=== PATIENT | male | born 1970 | race African-American/Black ===

== ENCOUNTER 2025-08-12 10:14 | Inpatient (IN) | payer MEDICAID, OTHER ==
[~2025-08-12] VITALS: Ht 175.3 cm; Wt 74.7 kg
[2025-08-12] MEDS: SODIUM CHLORIDE 0.9% 1,000 ML IV ONE (10:30)
--- NOTE | 2025-08-12 10:40 | ED.PDOC ---
GI ASSESSMENT HPI Comments 55 y/o M, TRUDY, presents to the ED for CC of abdominal pain. Patient reports, that he has been experiencing RLQ abdominal pain with associated nausea, vomiting, and diarrhea x1day. Patient states, he has been unable to hold anything down d/t symptoms. Patient denies hematemesis, melena, fever, chills, or recent changes in diet. No other symptoms or modifying factors are present at this time. Chief Complaint: Abdominal Pain Time Seen by MD: 10:10 Reviewed Notes: Nurses Notes, Medications, Allergies Allergies: Coded Allergies: Penicillins (Verified Allergy, Unknown, 08/12/25) Information Source: Patient, Emergency Med Personnel Mode of Arrival: EMS Timing: Days Duration: Since onset Prehospital treatment: None Vomitus: Watery Stool: Watery Severity: Moderate Recent: None Recent Hx of: None Pain Location: RLQ Modifying Factors: Nothing Associated sign and symptoms: Nausea, Vomiting, Diarrhea, Abdominal Pain Past Medical History PAST MEDICAL HISTORY: Denies Surgical History: Denies all surgeries Family History Family History: Unknown Social History Smoker: Non-Smoker Alcohol: Denies ETOH Use Drugs: Denies Drug Use Lives In: Home Constitutional: denies: chills, diaphoresis, fatigue, fever, malaise, sweats, weakness, others EENTM: denies: blurred vision, double vision, ear bleeding, ear discharge, ear drainage, ear pain, ear ringing, eye pain, eye redness, hearing loss, mouth pain, mouth swelling, nasal discharge, nose bleeding, nose congestion, nose pain, photophobia, tearing, throat pain, throat swelling, voice changes, others Respiratory: denies: cough, hemoptysis, orthopnea, SOB at rest, shortness of breath, SOB with excertion, stridor, wheezing, others Cardiovascular: denies: chest pain, dizzy spells, diaphoresis, Dyspnea on exertion, edema, irregular heart beat, left arm pain, lightheadedness, palpitations, PND, syncope, others Gastrointestinal: reports: abdominal pain, diarrhea, nausea, vomiting; denies: abdomen distended, blood streaked bowels, constipated, dysphagia, difficulty swallowing, hematemesis, melena, poor appetite, poor fluid intake, rectal bleeding, rectal pain, others Genitourinary: denies: burning, dysuria, flank pain, frequency, hematuria, incontinence, penile discharge, penile sore, pain, testicle pain, testicle swelling, urgency, others Neurological: denies: dizziness, fainting, headache, left sided numbness, left sided weakness, numbness, paresthesia, pre-existing deficit, right sided numbness, right sided weakness, seizure, speech problems, tingling, tremors, weakness, others Musculoskeletal: denies: back pain, gout, joint pain, joint swelling, muscle pain, muscle stiffness, neck pain, others Integumetry: denies: bruises, change in color, change in hair/nails, dryness, laceration, lesions, lumps, rash, wounds, others Allergic/Immunocompromised: denies: Difficulty Healing, Frequent Infections, Hives, Itching, others Hematologic/Lymphatic: denies: anemia, blood clots, easy bleeding, easy bruising, swollen glands, others Endocrine: denies: excessive hunger, excessive sweating, excessive thirst, excessive urination, flushing, intolerance to cold, intolerance to heat, unexplained weight gain, unexplained weight loss, others Psychiatric: denies: anxiety, bipolar disorder, depression, hopeless, panic disorder, schizophrenia, sleepless, suicidal, others All Other Systems: Reviewed and Negative Physical Exam General Appearance: Moderate Distress HEENT: Pharyngeal Erythema Neck: Normal Inspection Respiratory: No Respiratory Distress Cardiovascular: No Edema Breast Exam: Deferred Gastrointestinal: Non Tender Genitalia: Deferred Pelvic: Deferred Rectal: Deferred Extremities: No pedal edema Neurologic: No Motor Deficits Cerebellar Function: NOT DONE Reflexes: NOT DONE Skin: Normal Color Lymphatic: NOT DONE Was a procedure done? Was a procedure done?: No GI differential Dx Differential Diagnosis: Constipation, Diverticular disease, Gastritis/PUD, Gastroenteritis, Inflammatory BD, Electrolyte Imbalance, Food Poisoning, Bacterial, Viral X-Ray, Labs, Meds, VS Vital Signs Date Time Temp Pulse Resp B/P (MAP) Pulse Ox O2 Delivery O2 Flow Rate FiO2 08/12/25 13:04 97.4 69 16 106/65 (79) 96 97.4 08/12/25 12:25 69 16 106/65 08/12/25 11:48 68 18 136/81 08/12/25 11:30 97.8 68 18 136/81 (99) 99 97.8 08/12/25 10:22 98.2 72 16 113/72 99 98.2 Lab Test 08/12/25 10:35 Range/Units White Blood Count 14.4 H 4.4-10.8 10^3/uL Red Blood Count 5.80 4.5-5.90 10^6/uL Hemoglobin 16.7 13.5-17.5 g/dL Hematocrit 47.9 41.0-53.0 % Mean Corpuscular Volume 82.7 80.0-100.0 fL Mean Corpuscular Hemoglobin 28.7 28.0-32.0 pg Mean Corpuscular Hemoglobin Concent 34.8 32.0-36.0 g/dL Red Cell Distribution Width 14.6 H 11.8-14.3 % Platelet Count 212 140-450 10^3/uL Mean Platelet Volume 9.0 6.9-10.8 fL Neutrophils (%) (Auto) 82.1 H 37.0-80.0 % Lymphocytes (%) (Auto) 11.5 10.0-50.0 % Monocytes (%) (Auto) 5.7 0.0-12.0 % Eosinophils (%) (Auto) 0.3 0.0-7.0 % Basophils (%) (Auto) 0.4 0.0-2.0 % Neutrophils # (Auto) 11.8 H 1.6-8.6 10 ^3/uL Lymphocytes # (Auto) 1.7 0.4-5.4 10 ^3/uL Monocytes # (Auto) 0.8 0-1.3 10 ^3/uL Eosinophils # (Auto) 0.1 0-0.8 10 ^3/uL Basophils # (Auto) 0.1 0-0.2 10 ^3/uL Nucleated Red Blood Cells 0.2 % Platelet Estimate Adequate Giant Platelets Moderate Sodium Level 145 136-145 mmol/L Potassium Level 4.0 3.5-5.1 mmol/L Chloride Level 106 98-107 mmol/L Carbon Dioxide Level 22 20-31 mmol/L Anion Gap 17 H 5-15 Blood Urea Nitrogen 12 9-23 mg/dL Creatinine 1.16 0.700-1.30 mg/dL Glomerular Filtration Rate Calc 73 >90 mL/min BUN/Creatinine Ratio 10.3 10.0-20.0 Serum Glucose 98 74-106 mg/dL Calcium Level 10.1 8.7-10.4 mg/dL Total Bilirubin 1.1 H 0.2-1.0 mg/dL Aspartate Amino Transferase (AST) 16 13-40 U/L Alanine Aminotransferase (ALT) 14 7-40 U/L Alkaline Phosphatase 79 46-116 U/L Troponin I High Sensitivity 4 </=54 ng/L Total Protein 7.6 5.7-8.2 g/dL Albumin 4.7 3.2-4.8 g/dL Lipase 34 12-53 U/L Current Medications Medications (Trade) Dose Ordered Sig/Daphne Route Start Time Stop Time Status Last Admin Sodium Chloride 1,000 ml @ 1,000 mls/hr Q1H ONCE IV 08/12/25 10:30 08/12/25 11:29 DC 08/12/25 10:30 Morphine Sulfate 4 mg ONCE ONCE IV 08/12/25 10:30 08/12/25 10:31 DC 08/12/25 11:48 Ondansetron HCl (Zofran) 4 mg ONCE ONCE IV 08/12/25 10:30 08/12/25 10:31 DC 08/12/25 11:48 Pantoprazole Sodium (Protonix) 40 mg ONCE ONCE IV 08/12/25 10:30 08/12/25 10:31 DC 08/12/25 11:49 [place] [id number] Ph: [phone] DIAGNOSTIC IMAGING Diagnostic Imaging Report : [id number] Signed PATIENT: MEL LINGCCT: [id number] UNIT: [id number] : 1970 LOC: ER ROOM / BED: / AGE / SEX: 55 / M ADM STATUS: REG ER SERVICE 1029 ORDERING PHYSICIAN: AWILDA ZHOU MD PROCEDURE(s): ABPLIV - CT AB PEL WITH IV CON ONLY REASON: abdominal pain ORDER NUMBER(s): [id number], ACCESSION NUMBER(s): [id number] CLINICAL INFORMATION: Abdominal pain. TECHNIQUE: Axial CT images of the abdomen and pelvis were obtained after the uneventful administration of 100 mL Omnipaque 300 IV contrast. Coronal and sagittal reformatted images were obtained, reviewed, and stored. All CT scans at this medical facility are performed using dose modulation techniques as appropriate to a performed exam including the following: Automated exposure control was utilized; adjustment of the MA and/or KV according to patient size; and use of iterative reconstruction technique. CTDIvol = 8.48 mGy DLP = 501.59 mGy-cm COMPARISON: None FINDINGS: Lung bases: Lung bases are clear. Liver: Unremarkable. No abnormal density or focal lesion. Biliary: No calcified gallstones or biliary ductal dilatation. Spleen: Unremarkable. Pancreas: Unremarkable. No inflammatory changes, ductal dilatation, or mass identified. Adrenal glands: Unremarkable. No mass. Kidneys: No hydronephrosis or mass. Aorta/Vascular: No aneurysm or significant calcification. Lymph Nodes: No mass or lymphadenopathy. Bowel/mesentery: No small bowel obstruction. No free air or free fluid. Appendix is visualized and appears unremarkable. Pelvic organs: Grossly unremarkable. Bladder: Unremarkable. No mass. Abdominal wall: No mass or hernia. Bones: Postsurgical changes of posterior spinal fusion and interbody fusion extending from L2-S1. Surgical hardware appears intact. There are focal sclerotic lesions in the T12 and L1 vertebral bodies, including involving most of the T12 vertebral body. Sclerotic metastatic disease not excluded. IMPRESSION: 1. Sclerotic lesions in the T12 L1 vertebral bodies. Sclerotic metastases not excluded. Correlate with clinical findings. If clinically indicated, nuclear medicine bone scan or MRI without and with contrast could be considered to further characterize. 2. Otherwise, no evidence of acute disease in the abdomen or pelvis. ATED BY: TUNG DE LA O DO DICTATED DATE/TIME: 08/12/25 1234 SIGNED BY: TUNG DE LA O DO SIGNED DATE/TIME: 08/12/25 1234 CC: Time of 1ST Reevaluation: 10:40 Reevaluation 1ST: Unchanged Patient Education/Counseling: Diagnosis, Treatment Family Education/Counseling: No Family Present SEPSIS Sepsis Screen Date sepsis recognized/suspect: Aug 12, 2025 Time Sepsis recognized/suspect: 1022 Recent Procedure: No On Antibiotic Therapy: No Respiratory Rate >20: No Heart Rate >90: No Temp<36 C (96.8 F) or >38.3 C: No SBP <90 or MAP <65 mmHG: No New Acute Mental Status Change: No Is the patient on CPAP, BIPAP,: No Physician Orders Urinalysis (08/12/25 10:29) Ct Ab Pel With Iv Con Only (08/12/25 10:29) Vital Signs Date Time Temp Pulse Resp B/P (MAP) Pulse Ox O2 Delivery O2 Flow Rate FiO2 08/12/25 13:04 97.4 69 16 106/65 (79) 96 97.4 08/12/25 12:25 69 16 106/65 08/12/25 11:48 68 18 136/81 08/12/25 11:30 97.8 68 18 136/81 (99) 99 97.8 08/12/25 10:22 98.2 72 16 113/72 99 98.2 Laboratory Tests Test 08/12/25 10:35 White Blood Count 14.4 10^3/uL (4.4-10.8) H Medications Medications Dose Ordered Sig/Daphne Route Start Time Stop Time Status Last Admin Dose Admin Morphine Sulfate 4 mg ONCE ONCE IV 08/12/25 10:30 08/12/25 10:31 DC 08/12/25 11:48 Ondansetron HCl 4 mg ONCE ONCE IV 08/12/25 10:30 08/12/25 10:31 DC 08/12/25 11:48 Pantoprazole Sodium 40 mg ONCE ONCE IV 08/12/25 10:30 08/12/25 10:31 DC 08/12/25 11:49 Sodium Chloride 1,000 ml @ 1,000 mls/hr Q1H ONCE IV 08/12/25 10:30 08/12/25 11:29 DC 08/12/25 10:30 Departure 1 Departure Time of Disposition: 13:11 (Patient presented with abdominal pain that was concerning for possible appendicits, gastritis, cholecystitis, colitis, gastroenteritis, sbo, or orther possible surgical emergency. Data: 1. I ordered and reviewed the result of at least 3 labs including a CBC, BMP, and Urinalysis. 2. I independently interpreted the following tests: CT Abdomen and Pelvis is concerning for carotic metastasis lesion to thoracic spine .Risk:This patient has a high risk of morbidity due to further diagnostic testing or treatment and may suffer from an acute abdominal process disorder. Workup reveals intractable back pain with concern for cancer metastasis and patient should be admitted for further workup. and possible expert consultation. 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 Patient with a intractable pain. We will admit patient for pain control and expedited workup) Impression: Primary Impression: Intractable back pain Additional Impression: Closed T12 fracture Disposition: 09 ADMITTED INPATIENT Admit to: Tele Condition: Guarded Critical Care Note Critical Care Time?: Yes Critical care comment: Intractable pain Authorized and Performed by: Awilda Zhou MD Total critical care time: Approximately 38 minutes Due to a high probability of clinically significant, life threatening deterioration, the patient required my highest level of preparedness to intervene emergently and I personally spent this critical care time directly and personally managing the patient. This critical care time included obtaining a history; examining the patient; pulse oximetry; ordering and review of studies; arranging urgent treatment with development of a management plan; evaluation of patient's response to treatment; frequent reassessment; and, discussions with other providers. This critical care time was performed to assess and manage the high probability of imminent, life-threatening deterioration that could result in multi-organ failure. It was exclusive of separately billable procedures and treating other patients and teaching time. Please see my other sections and the rest of the note for further information on patient assessment and treatment. Stability Stability form required: No Heart Score Heart Score: Heart Score Response (Comments) Value History N/A 0 EKG N/A 0 Age N/A 0 Risk Factors N/A 0 Troponin N/A 0 Total 0 I personally scribed for AWILDA ZHOU MD ([email or web address]) on 08/12/25 at 10:40. Electronically submitted by Judi Leon ([email or web address]). I personally scribed for AWILDA ZHOU MD ([email or web address]) on 08/12/25 at 12:53. Electronically submitted by Judi Leon ([email or web address]). AWILDA ZHOU MD Aug 12, 2025 10:40
[2025-08-12 11:06] LABS: Hematocrit 47.9 % (41.0-53.0); Hemoglobin 16.7 g/dL (13.5-17.5); Mean Corpuscular Hemoglobin 28.7 pg (28.0-32.0); Mean Corpuscular Volume 82.7 fL (80.0-100.0); Nucleated Red Blood Cells % 0.2 %
[2025-08-12 11:25] LABS: Alanine Aminotransferase 14 U/L (7-40); Alkaline Phosphatase 79 U/L (46-116); Calcium 10.1 mg/dL (8.7-10.4)
[2025-08-12 11:26] LABS: Albumin 4.7 g/dL (3.2-4.8); Anion Gap 17 (5-15); BUN/Creatinine Ratio 10.3 (10.0-20.0); Bilirubin, Total 1.1 mg/dL (0.2-1.0); Blood Urea Nitrogen 12 mg/dL (9-23); Carbon Dioxide 22 mmol/L (20-31); Chloride 106 mmol/L (98-107); Glucose 98 mg/dL (74-106); Lipase 34 U/L (12-53); Potassium 4.0 mmol/L (3.5-5.1); Sodium 145 mmol/L (136-145); Total Protein 7.6 g/dL (5.7-8.2)
[2025-08-12 11:41] LABS: Giant Platelets Moderate
[2025-08-12] MEDS: ONDANSETRON HCL 4 MG/2 ML VIAL IV ONE (11:48)
[2025-08-12] MEDS: MORPHINE SULFATE 4 MG/ML SYR/VIAL IV ONE (11:48)
[2025-08-12] MEDS: PANTOPRAZOLE 40 MG/10 ML VIAL INJ IV ONE (11:49)
[2025-08-12] MEDS: IOHEXOL 300 MG/ML 100ML BOTTLE IJ ONE (12:15)
--- NOTE | 2025-08-12 12:37 | DVH ---
CLINICAL INFORMATION: Abdominal pain. TECHNIQUE: Axial CT images of the abdomen and pelvis were obtained after the uneventful administration of 100 mL Omnipaque 300 IV contrast. Coronal and sagittal reformatted images were obtained, reviewed, and stored. All CT scans at this medical facility are performed using dose modulation techniques as appropriate to a performed exam including the following: Automated exposure control was utilized; adjustment of the MA and/or KV according to patient size; and use of iterative reconstruction technique. CTDIvol = 8.48 mGy DLP = 501.59 mGy-cm COMPARISON: None FINDINGS: Lung bases: Lung bases are clear. Liver: Unremarkable. No abnormal density or focal lesion. Biliary: No calcified gallstones or biliary ductal dilatation. Spleen: Unremarkable. Pancreas: Unremarkable. No inflammatory changes, ductal dilatation, or mass identified. Adrenal glands: Unremarkable. No mass. Kidneys: No hydronephrosis or mass. Aorta/Vascular: No aneurysm or significant calcification. Lymph Nodes: No mass or lymphadenopathy. Bowel/mesentery: No small bowel obstruction. No free air or free fluid. Appendix is visualized and appears unremarkable. Pelvic organs: Grossly unremarkable. Bladder: Unremarkable. No mass. Abdominal wall: No mass or hernia. Bones: Postsurgical changes of posterior spinal fusion and interbody fusion extending from L2-S1. Surgical hardware appears intact. There are focal sclerotic lesions in the T12 and L1 vertebral bodies, including involving most of the T12 vertebral body. Sclerotic metastatic disease not excluded. IMPRESSION: 1. Sclerotic lesions in the T12 L1 vertebral bodies. Sclerotic metastases not excluded. Correlate with clinical findings. If clinically indicated, nuclear medicine bone scan or MRI without and with contrast could be considered to further characterize. 2. Otherwise, no evidence of acute disease in the abdomen or pelvis.
--- NOTE | 2025-08-12 14:14 | DVHHP2 ---
Admitting Diagnosis: Abdominal pain, N/V, back pain History of Present Illness 55 y/o male patient presents with c/o abdominal pain, nausea, vomiting, and back pain. Patient states he has not been able to tolerate any food or liquids. While in the emergency department the patient was evaluated by the provider, As per provider: Labs, vital signs, and imagining monitored. Patient will be admitted for further evaluation and treatment. I discussed admission with the patient/family and is in agreement to treatment plan. Allergies: Coded Allergies: Penicillins (Verified Allergy, Unknown, 08/12/25) Home Meds Reported Medications Hydrocodone-Acetaminophen (Hydrocodone Bitartrate/AC 10-325 mg) 1 Tab Tab, 1 TAB PO PRN for PAIN SCALE 7 THRU 10, TAB 08/12/25 Docusate Sodium (Colace) 100 Mg Cap, 1 CAP PO BID, #30 CAP 08/12/25 Cyclobenzaprine HCl (Cyclobenzaprine Hydrochlo) 10 Mg Tab, 10 MG PO, TAB 08/12/25 Current Medications Current Medications Medications (Trade) Dose Ordered Sig/Daphne Route PRN Reason Start Time Stop Time Status Last Admin Pantoprazole Sodium (Protonix) 40 mg DAILY IV 08/13/25 10:00 08/13/25 14:38 DC 08/13/25 08:46 Sucralfate (Carafate Susp) 1 gm BID@0600,2200 PO 08/12/25 22:00 08/13/25 14:38 DC 08/13/25 05:18 Prochlorperazine Edisylate (Compazine Inj) 10 mg Q4HPRN PRN IV NAUSEA OR VOMITING 08/13/25 10:00 08/13/25 13:35 Dextrose/Sodium Chloride 1,000 ml @ 125 mls/hr Q8H IV 08/13/25 13:45 08/13/25 16:12 Pantoprazole Sodium (Protonix) 40 mg BID IV 08/13/25 22:00 Sucralfate (Carafate Susp) 1 gm ACHS PO 08/13/25 17:00 08/13/25 16:12 Morphine Sulfate 2 mg Q4HPRN PRN IV SEVERE PAIN (7-10 PAIN SCALE) 08/13/25 17:30 08/13/25 17:38 Review of Systems Constitutional: denies chills, denies fever, denies malaise Eyes: denies eye pain, denies vision change ENT: denies ear pain, denies headache, denies nasal congestion, denies painful swallowing, denies voice change Cardiovascular: denies chest pain, denies edema, denies orthopnea, denies pal pitations, denies paroxysmal nocturnal dyspnea Respiratory: denies cough, denies shortness of breath Gastrointestinal: denies constipation, denies diarrhea Genitourinary: denies dysuria, denies frequent urination, denies urethral discharge Musculoskeletal: denies joint pain, denies muscle pain Skin: denies bruising, denies itching, denies rash Neurological: denies focal weakness, denies headache, denies sensory changes Psychiatric: denies anxiety, denies depression Endocrine: denies polydipsia, denies polyuria Hematologic/Lymphatic: denies easy bleeding, denies easy bruising, denies enlarged lymph nodes Allergic/Immunologic: denies allergy, denies hives Vital Signs Vital Signs Date Time Temp Pulse Resp B/P (MAP) Pulse Ox O2 Delivery O2 Flow Rate FiO2 08/13/25 18:08 62 17 134/80 08/13/25 16:30 98.0 99 98.0 08/13/25 14:40 Room Air 0 99 Physical Exam General Appearance: alert, no distress HEENT: EOMI, PERRLA, normal external inspect of ears, no icterus, no nasal drainage Neck: no carotid bruit, no jugular venous distention (JVD), no lymphadenopathy Chest: normal thorax Respiratory: clear to auscultation, normal air movement Cardiovascular: regular rate and rhythm, no diastolic murmur, no jugular venous distention (JVD), no rub, no systolic murmur Abdominal: soft, no hepatomegaly, no mass, no splenomegaly Genitourinary: grossly normal external Musculoskeletal: no joint tenderness, no swelling Extremities: normal pulses, no calf tenderness, no clubbing, no cyanosis, no edema Skin: no bruising, no jaundice, no rash Neurological: alert, No focal deficit SEPSIS Sepsis Screen Date sepsis recognized/suspect: Aug 12, 2025 Time Sepsis recognized/suspect: 1022 Recent Procedure: No On Antibiotic Therapy: No Respiratory Rate >20: No Heart Rate >90: No Temp<36 C (96.8 F) or >38.3 C: No SBP <90 or MAP <65 mmHG: No New Acute Mental Status Change: No Is the patient on CPAP, BIPAP,: No Physician Orders Ct Ab Pel With Iv Con Only (08/12/25 10:29) Admit (08/12/25 14:11) Code Status (08/12/25 14:11) Oxygen Per Hour (08/12/25 14:11) Hydrocodone-Acet 5/325mg Tab (Devol 5/32 (08/12/25 14:15) Acetaminophen Tablet (Tylenol Tablet) (08/12/25 14:15) * Gi D[facility] (08/12/25 14:11) Consultdr. Cisco Staley(Spine) (08/12/25 14:11) Ondansetron Hcl (Zofran) (08/12/25 14:15) Lumbar Spine Wo Contrast (08/12/25 15:56) Obtain Consent For: (08/12/25 16:44) Obtain Consent For Anesthesia (08/13/25 16:44) Npo After Midnight (08/12/25 16:44) Chest Portable (08/13/25 04:00) Lumbar Spine Wo W Contrst (08/13/25 09:45) Prochlorperazine Inj (Compazine Inj) (08/13/25 10:00) D5w/Sod Chl 0.45% (D5w 1/2ns) (08/13/25 13:45) Pantoprazole (Protonix) (08/13/25 22:00) Sucralfate Susp (Carafate Susp) (08/13/25 17:00) Full Liq Diet (08/13/25 Dinner) Bone Whole Body (08/14/25 08:00) Morphine Sulfate Injection (08/13/25 17:30) Vital Signs Date Time Temp Pulse Resp B/P (MAP) Pulse Ox O2 Delivery O2 Flow Rate FiO2 08/13/25 18:08 62 17 134/80 08/13/25 17:38 68 17 144/83 08/13/25 16:30 98.0 60 16 144/83 (103) 99 98.0 08/13/25 15:45 54 12 121/61 (81) 99 08/13/25 15:15 61 12 96/66 (76) 100 08/13/25 15:00 92 13 109/69 (82) 98 08/13/25 14:45 59 19 127/62 (83) 99 08/13/25 14:40 Room Air 0 99 08/13/25 14:40 84 18 99 Mask 0 08/13/25 14:40 84 18 120/69 (86) 99 08/13/25 14:35 51 14 115/66 (82) 100 08/13/25 14:30 17 97 Room Air* 0 21 08/13/25 14:30 Mask 6.0 98 08/13/25 14:30 71 24 98 Mask 6.0 08/13/25 14:30 99.5 71 24 131/95 (107) 98 99.5 08/13/25 13:20 98.4 58 18 110/65 (80) 99 98.4 08/13/25 08:10 98.5 52 18 118/68 (85) 99 98.5 08/13/25 08:00 18 95 Room Air* 0 21 08/13/25 05:00 98.2 56 19 115/66 (82) 97 98.2 08/13/25 01:00 98.3 60 18 113/63 (80) 95 98.3 08/12/25 21:00 98.3 60 18 99/58 (72) 95 98.3 08/12/25 20:00 60 18 95 Room Air* 0 21 08/12/25 18:52 Room Air* 0 21 08/12/25 18:00 98.2 67 17 118/73 (88) 95 98.2 08/12/25 15:34 97.6 65 16 110/65 (80) 96 97.6 08/12/25 13:04 97.4 69 16 106/65 (79) 96 97.4 08/12/25 12:25 69 16 106/65 08/12/25 11:48 68 18 136/81 08/12/25 11:30 97.8 68 18 136/81 (99) 99 97.8 08/12/25 10:22 98.2 72 16 113/72 99 98.2 Laboratory Tests Test 08/12/25 10:35 08/13/25 05:40 White Blood Count 14.4 10^3/uL (4.4-10.8) H 14.3 10^3/uL (4.4-10.8) H Medications Medications Dose Ordered Sig/Daphne Route Start Time Stop Time Status Last Admin Dose Admin Dextrose/Sodium Chloride 1,000 ml @ 125 mls/hr Q8H IV 08/13/25 13:45 08/13/25 16:12 Morphine Sulfate 2 mg Q4HPRN PRN IV 08/13/25 17:30 08/13/25 17:38 Pantoprazole Sodium 40 mg DAILY IV 08/13/25 10:00 08/13/25 14:38 DC 08/13/25 08:46 Prochlorperazine Edisylate 10 mg Q4HPRN PRN IV 08/13/25 10:00 08/13/25 13:35 Sucralfate 1 gm ACHS PO 08/13/25 17:00 08/13/25 16:12 Results Labs Test 08/13/25 05:40 08/12/25 18:45 08/12/25 10:35 Range/Units White Blood Count 14.3 H 4.4-10.8 10^3/uL Red Blood Count 5.16 4.5-5.90 10^6/uL Hemoglobin 14.8 13.5-17.5 g/dL Hematocrit 42.2 # 41.0-53.0 % Mean Corpuscular Volume 81.8 80.0-100.0 fL Mean Corpuscular Hemoglobin 28.6 28.0-32.0 pg Mean Corpuscular Hemoglobin Concent 35.0 32.0-36.0 g/dL Red Cell Distribution Width 14.9 H 11.8-14.3 % Platelet Count 179 140-450 10^3/uL Mean Platelet Volume 9.3 6.9-10.8 fL Neutrophils (%) (Auto) 78.0 37.0-80.0 % Lymphocytes (%) (Auto) 12.4 10.0-50.0 % Monocytes (%) (Auto) 9.1 0.0-12.0 % Eosinophils (%) (Auto) 0.0 0.0-7.0 % Basophils (%) (Auto) 0.5 0.0-2.0 % Neutrophils # (Auto) 11.1 H 1.6-8.6 10 ^3/uL Lymphocytes # (Auto) 1.8 0.4-5.4 10 ^3/uL Monocytes # (Auto) 1.3 0-1.3 10 ^3/uL Eosinophils # (Auto) 0 0-0.8 10 ^3/uL Basophils # (Auto) 0.1 0-0.2 10 ^3/uL Nucleated Red Blood Cells 0.2 % Prothrombin Time 12.4 H 9.3-11.8 sec Prothrombin Time INR 1.19 H 0.9-1.15 Activated Partial Thromboplast Time 26.4 24.5-34.5 SEC Sodium Level 146 H 136-145 mmol/L Potassium Level 4.1 3.5-5.1 mmol/L Chloride Level 107 98-107 mmol/L Carbon Dioxide Level 25 20-31 mmol/L Anion Gap 14 5-15 Blood Urea Nitrogen 11 9-23 mg/dL Creatinine 1.12 0.700-1.30 mg/dL Glomerular Filtration Rate Calc 77 >90 mL/min BUN/Creatinine Ratio 9.8 L 10.0-20.0 Serum Glucose 110 H 74-106 mg/dL Calcium Level 9.3 8.7-10.4 mg/dL Total Bilirubin 1.0 0.2-1.0 mg/dL Aspartate Amino Transferase (AST) 19 13-40 U/L Alanine Aminotransferase (ALT) 12 7-40 U/L Alkaline Phosphatase 61 46-116 U/L Total Protein 6.5 5.7-8.2 g/dL Albumin 3.9 3.2-4.8 g/dL Urine Color Yellow Yellow Urine Clarity Clear Clear Urine pH 6.5 5.0-9.0 Urine Specific [place] > 1.050 H 1.001-1.035 Urine Protein 1+ H Negative Urine Ketones 2+ H Negative Urine Blood Negative Negative /uL Urine Nitrite Negative Negative Urine Bilirubin Negative Negative Urine Urobilinogen Normal Negative mg/dL Urine Leukocyte Esterase Negative Negative /uL Urine RBC 3 0 - 3 /hpf Urine Microscopic WBC < 1 0-3 /HPF Urine Squamous Epithelial Cells None seen <5 /hpf Urine Bacteria None seen None Seen /hpf Urine Mucus Few None Seen Urine Glucose Normal Normal mg/dL Platelet Estimate Adequate Giant Platelets Moderate Troponin I High Sensitivity 4 </=54 ng/L Lipase 37 12-53 U/L Plan 1. Intractable back pain Monitor, MRI spine, bone scan, PRN pain meds 2. Closed T12 fracture Monitor, MRI spine, bone scan, orthopedic spinal consult 3. Intractable nausea and vomiting Monitor, GI consult, antiemetics, IV fluids 4. Cannabis use Monitor, educate Plan discussed with: Patient, Other [employer] Aug 12, 2025 14:14
[2025-08-12] MEDS ORDERED: ACETAMINOPHEN 325 MG TAB PO PRN (14:15)
[2025-08-12] MEDS ORDERED: MORPHINE SULFATE INJ 2 MG/ml SYRG IV PRN (14:15)
--- NOTE | 2025-08-12 16:29 | DVHINCON2 ---
Consultation - Spinal Surgery Date Seen: Aug 12, 2025 Referring Physician Referring Physician Janet Baca NP Reason for Consultation Rule out multiple pathologic, possible metastatic fractures History of Present Illness History of Present Illness Unfortunate gentleman comes into the ER is severe abdominal distress and incapacitating low back pain No radicular complaints no new onset bowel or bladder incontinence he has a history of lumbar 2 to sacral 1 posterior spinal interbody fusion and with cage and instrumentation Allergies and medications Allergies: Coded Allergies: Penicillins (Verified Allergy, Unknown, 08/12/25) Review of systems Review of Systems: HEENT:Normal, CVS:Normal, GI:Abnormal, MSK:Abnormal, NEURO:Abnormal Examination Vital signs Vital Signs Date Time Temp Pulse Resp B/P (MAP) Pulse Ox O2 Delivery O2 Flow Rate FiO2 08/12/25 15:34 97.6 65 16 110/65 (80) 96 97.6 Medications Current Medications Medications (Trade) Dose Ordered Sig/Daphne Route PRN Reason Start Time Stop Time Status Last Admin Acetaminophen/ Hydrocodone Bitart (Kirksey 5/325MG Tab) 1 tab Q4HP PRN PO MODERATE PAIN (4-6 PAIN SCALE) 08/12/25 14:15 Acetaminophen (Tylenol Tablet) 650 mg Q6HP PRN PO PAIN SCALE 1-3 OR TEMP>100.4 08/12/25 14:15 Morphine Sulfate 2 mg Q4HPRN PRN IV SEVERE PAIN (7-10 PAIN SCALE) 08/12/25 14:15 Ondansetron HCl (Zofran) 4 mg Q4HP PRN IV NAUSEA OR VOMITING 08/12/25 14:15 Laboratory ORDERING PHYSICIAN: AWILDA GORDILLO MD PROCEDURE(s): ABPLIV - CT AB PEL WITH IV CON ONLY REASON: abdominal pain ORDER NUMBER(s): [id number], ACCESSION NUMBER(s): [id number] CLINICAL INFORMATION: Abdominal pain. TECHNIQUE: Axial CT images of the abdomen and pelvis were obtained after the uneventful administration of 100 mL Omnipaque 300 IV contrast. Coronal and sagittal reformatted images were obtained, reviewed, and stored. All CT scans at this medical facility are performed using dose modulation techniques as appropriate to a performed exam including the following: Automated exposure control was utilized; adjustment of the MA and/or KV according to patient size; and use of iterative reconstruction technique. CTDIvol = 8.48 mGy DLP = 501.59 mGy-cm COMPARISON: None FINDINGS: Lung bases: Lung bases are clear. Liver: Unremarkable. No abnormal density or focal lesion. Biliary: No calcified gallstones or biliary ductal dilatation. Spleen: Unremarkable. Pancreas: Unremarkable. No inflammatory changes, ductal dilatation, or mass albert ntified. Adrenal glands: Unremarkable. No mass. Kidneys: No hydronephrosis or mass. Aorta/Vascular: No aneurysm or significant calcification. Lymph Nodes: No mass or lymphadenopathy. Bowel/mesentery: No small bowel obstruction. No free air or free fluid. Appendix is visualized and appears unremarkable. Pelvic organs: Grossly unremarkable. Bladder: Unremarkable. No mass. Abdominal wall: No mass or hernia. Bones: Postsurgical changes of posterior spinal fusion and interbody fusion extending from L2-S1. Surgical hardware appears intact. There are focal sclerotic lesions in the T12 and L1 vertebral bodies, including involving most of the T12 vertebral body. Sclerotic metastatic disease not excluded. IMPRESSION: 1. Sclerotic lesions in the T12 L1 vertebral bodies. Sclerotic metastases not excluded. Correlate with clinical findings. If clinically indicated, nuclear medicine bone scan or MRI without and with contrast could be considered to further characterize. 2. Otherwise, no evidence of acute disease in the abdomen or pelvis. ATED BY: TUNG DE LA O DO DICTATED DATE/TIME: 08/12/25 1234 SIGNED BY: TUNG DE LA O DO SIGNED DATE/TIME: 08/12/25 1234 CC: Labs Test 08/12/25 10:35 Range/Units White Blood Count 14.4 H 4.4-10.8 10^3/uL Red Blood Count 5.80 4.5-5.90 10^6/uL Hemoglobin 16.7 13.5-17.5 g/dL Hematocrit 47.9 41.0-53.0 % Mean Corpuscular Volume 82.7 80.0-100.0 fL Mean Corpuscular Hemoglobin 28.7 28.0-32.0 pg Mean Corpuscular Hemoglobin Concent 34.8 32.0-36.0 g/dL Red Cell Distribution Width 14.6 H 11.8-14.3 % Platelet Count 212 140-450 10^3/uL Mean Platelet Volume 9.0 6.9-10.8 fL Neutrophils (%) (Auto) 82.1 H 37.0-80.0 % Lymphocytes (%) (Auto) 11.5 10.0-50.0 % Monocytes (%) (Auto) 5.7 0.0-12.0 % Eosinophils (%) (Auto) 0.3 0.0-7.0 % Basophils (%) (Auto) 0.4 0.0-2.0 % Neutrophils # (Auto) 11.8 H 1.6-8.6 10 ^3/uL Lymphocytes # (Auto) 1.7 0.4-5.4 10 ^3/uL Monocytes # (Auto) 0.8 0-1.3 10 ^3/uL Eosinophils # (Auto) 0.1 0-0.8 10 ^3/uL Basophils # (Auto) 0.1 0-0.2 10 ^3/uL Nucleated Red Blood Cells 0.2 % Platelet Estimate Adequate Giant Platelets Moderate Sodium Level 145 136-145 mmol/L Potassium Level 4.0 3.5-5.1 mmol/L Chloride Level 106 98-107 mmol/L Carbon Dioxide Level 22 20-31 mmol/L Anion Gap 17 H 5-15 Blood Urea Nitrogen 12 9-23 mg/dL Creatinine 1.16 0.700-1.30 mg/dL Glomerular Filtration Rate Calc 73 >90 mL/min BUN/Creatinine Ratio 10.3 10.0-20.0 Serum Glucose 98 74-106 mg/dL Calcium Level 10.1 8.7-10.4 mg/dL Total Bilirubin 1.1 H 0.2-1.0 mg/dL Aspartate Amino Transferase (AST) 16 13-40 U/L Alanine Aminotransferase (ALT) 14 7-40 U/L Alkaline Phosphatase 79 46-116 U/L Troponin I High Sensitivity 4 </=54 ng/L Total Protein 7.6 5.7-8.2 g/dL Albumin 4.7 3.2-4.8 g/dL Lipase 37 12-53 U/L Examination: GENERAL:Normal, HEENT:Normal, NECK:Normal, CVS:Normal, ABDOMEN:Normal, MSK:Abnormal, SKIN:Normal, NEURO:Abnormal, :Abnormal Problem List/Assessment/Plan Problems: (1) Multiple lesions on CT of brain and spine (2) Intractable back pain Assessment and Plan Sclerotic lesion in T12 and L1 Will order stat MRI to evaluate for neoplasm Plan discussed with Plan discussed with: Patient COLBY BENAVIDES MD Aug 12, 2025 16:29
[2025-08-12] MEDS: HYDROcodone-ACET 5/325MG TAB PO PRN (16:34)
[2025-08-12] MEDS: ONDANSETRON HCL 4 MG/2 ML VIAL IV PRN (16:34)
--- NOTE | 2025-08-12 16:55 | DVHCONRES ---
Date Seen: Aug 12, 2025 Resident Creating Document: JHAJJ,SARHiralTUNGET RESIDENT Referring Physician LANG Baca Reason for Consultation Abdominal pain History of Present Illness Patient is a 55-year-old male with a medical history of hyperlipidemia presented to the ED with a chief complaint of intractable nausea vomiting and abdominal pain with the last 24 hours and the patient reported he was not able to keep anything down. Patient also reported to have right sided abdominal pain from the upper to the lower quadrant. Patient denied any hematemesis, fever, chills, recent sick contacts, changes in the diet, melena. Patient reportedly never had endoscopy before. 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 Family History Noncontributory Social History Reports marijuana usage denies any smoking, alcohol use or any other drug use Allergies: Coded Allergies: Penicillins (Verified Allergy, Unknown, 08/12/25) Current Medications Current Medications Medications (Trade) Dose Ordered Sig/Daphne Route PRN Reason Start Time Stop Time Status Last Admin Acetaminophen/ Hydrocodone Bitart (Jean 5/325MG Tab) 1 tab Q4HP PRN PO MODERATE PAIN (4-6 PAIN SCALE) 08/12/25 14:15 08/12/25 16:34 Acetaminophen (Tylenol Tablet) 650 mg Q6HP PRN PO PAIN SCALE 1-3 OR TEMP>100.4 08/12/25 14:15 Morphine Sulfate 2 mg Q4HPRN PRN IV SEVERE PAIN (7-10 PAIN SCALE) 08/12/25 14:15 Ondansetron HCl (Zofran) 4 mg Q4HP PRN IV NAUSEA OR VOMITING 08/12/25 14:15 08/12/25 16:34 Review of Systems Reports of right upper and middle quadrant pain Reports to be feeling nauseous but denies any vomiting Vital Signs Vital Signs Date Time Temp Pulse Resp B/P (MAP) Pulse Ox O2 Delivery O2 Flow Rate FiO2 08/12/25 15:34 97.6 65 16 110/65 (80) 96 97.6 Physical Exam Gen - no pallor, no scleral icterus Skin - Patients skin is warm and dry. HEENT - normocephalic, atraumatic, dry mucous membranes. Neck - supple, no lymphadenopathy Pulmonary - B/L decreased breath sounds cardiovascular - regular S1,S2 heard GI - soft abdomen with mild tenderness to palpation in the right upper quadrant. Bowel sounds normoactive. Neurological - Patient is alert and oriented x4. Labs/Diagnostic Data Labs Test 08/12/25 10:35 Range/Units White Blood Count 14.4 H 4.4-10.8 10^3/uL Red Blood Count 5.80 4.5-5.90 10^6/uL Hemoglobin 16.7 13.5-17.5 g/dL Hematocrit 47.9 41.0-53.0 % Mean Corpuscular Volume 82.7 80.0-100.0 fL Mean Corpuscular Hemoglobin 28.7 28.0-32.0 pg Mean Corpuscular Hemoglobin Concent 34.8 32.0-36.0 g/dL Red Cell Distribution Width 14.6 H 11.8-14.3 % Platelet Count 212 140-450 10^3/uL Mean Platelet Volume 9.0 6.9-10.8 fL Neutrophils (%) (Auto) 82.1 H 37.0-80.0 % Lymphocytes (%) (Auto) 11.5 10.0-50.0 % Monocytes (%) (Auto) 5.7 0.0-12.0 % Eosinophils (%) (Auto) 0.3 0.0-7.0 % Basophils (%) (Auto) 0.4 0.0-2.0 % Neutrophils # (Auto) 11.8 H 1.6-8.6 10 ^3/uL Lymphocytes # (Auto) 1.7 0.4-5.4 10 ^3/uL Monocytes # (Auto) 0.8 0-1.3 10 ^3/uL Eosinophils # (Auto) 0.1 0-0.8 10 ^3/uL Basophils # (Auto) 0.1 0-0.2 10 ^3/uL Nucleated Red Blood Cells 0.2 % Platelet Estimate Adequate Giant Platelets Moderate Sodium Level 145 136-145 mmol/L Potassium Level 4.0 3.5-5.1 mmol/L Chloride Level 106 98-107 mmol/L Carbon Dioxide Level 22 20-31 mmol/L Anion Gap 17 H 5-15 Blood Urea Nitrogen 12 9-23 mg/dL Creatinine 1.16 0.700-1.30 mg/dL Glomerular Filtration Rate Calc 73 >90 mL/min BUN/Creatinine Ratio 10.3 10.0-20.0 Serum Glucose 98 74-106 mg/dL Calcium Level 10.1 8.7-10.4 mg/dL Total Bilirubin 1.1 H 0.2-1.0 mg/dL Aspartate Amino Transferase (AST) 16 13-40 U/L Alanine Aminotransferase (ALT) 14 7-40 U/L Alkaline Phosphatase 79 46-116 U/L Troponin I High Sensitivity 4 </=54 ng/L Total Protein 7.6 5.7-8.2 g/dL Albumin 4.7 3.2-4.8 g/dL Lipase 37 12-53 U/L Assessment Acute abdominal pain Acute intractable nausea vomiting Rule out cholelithiasis Possible acute gastritis Plan - Protonix IV daily and Carafate p.o. b.i.d. - clear liquid diet - EGD tomorrow - NPO after midnight Plan discussed with Dr. Mcdaniels Plan discussed with: Patient YOLI SANFORD RESIDENT Aug 12, 2025 16:54
[2025-08-12 18:00] VITALS: BP 118/73; PULSE 67; RESP 17; TEMP 98.2; O2SAT 95
--- NOTE | 2025-08-12 18:06 | DVH ---
PROCEDURE: MRI LUMBAR SPINE WO CONTRAST Indication: rule out metastatic fractures COMPARISON: None TECHNIQUE: Multiplanar multisequence images of the the lumbar spine are obtained. FINDINGS: For the purpose of this examination, there are 5 lumbar vertebral body types counting from the lumbosacral junction. Posterior fixation of the L2 through S1 vertebral bodies. Lumbar heights are maintained. Posterior decompression at approximately L3, L4. Susceptibility artifact from hardware limits evaluation. T1 hypointense signal T12 and L1 vertebral bodies corresponding to the sclerotic lesion seen on CT from today. This is more pronounced within the T12 vertebral body. There is some corresponding increased STIR/ marrow edema signal. Conus terminates at the L2 level. T12-L1: 3 mm disc protrusion. Aicm-iy-[id number] facet and flavum hypertrophy. No spinal canal stenosis. Moderate to severe bilateral neural foraminal stenosis. L1-2: 4 mm disc protrusion. Doyt-ar-chfmlmlk facet and flavum hypertrophy. Mild spinal canal stenosis. Severe right and moderate left neural foraminal stenosis. L2-3: Small disc osteophyte complex. [id number]-[id number] facet and flavum hypertrophy. No spinal canal stenosis. Severe right and mild left neural foraminal stenosis. L3-4: Small disc osteophyte complex. No spinal canal stenosis. Bzpj-eg-rggjyhtm bilateral neural foraminal stenosis. L4-5: Small disc osteophyte complex. Moderate facet hypertrophy. No spinal canal stenosis. Moderate to severe bilateral neural foraminal stenosis. L5-S1: 3 mm disc protrusion. Moderate to severe facet and flavum hypertrophy. No spinal canal stenosis. Moderate to severe right and severe left neural foraminal stenosis. IMPRESSION: There is decreased T1 and increased STIR signal at T12 and L1 more pronounced at T12 corresponding to the sclerotic changes seen on CT from today. Recommend MRI lumbar spine with contrast to evaluate for potential metastatic disease versus other etiologies including degenerative edematous changes. Postsurgical changes L2 through S1 as described. No high-grade spinal canal stenosis. Multilevel moderate to severe neural foraminal stenosis as described. No definitive acute fracture identified.
[2025-08-12 19:45] LABS: Urine Protein, UAD 1+ (Negative)
[2025-08-12 20:00] VITALS: PULSE 60; RESP 18; O2SAT 95
[2025-08-12] MEDS ORDERED: DOCU-94 PO (20:12)
[2025-08-12] MEDS ORDERED: CYCL-611 PO (20:12)
[2025-08-12] MEDS ORDERED: HYDR-4798 PO (20:12)
[2025-08-12 21:00] VITALS: BP 99/58; PULSE 60; RESP 18; TEMP 98.3; O2SAT 95
[2025-08-12] MEDS: SUCRALFATE 1 GM/10 ML ORAL SUSP PO SCH (21:21)
[2025-08-13] VITALS (10 sets, daily range): BP systolic 108–144; BP diastolic 63–83; PULSE 52–84; RESP 16–24; TEMP 98–98.8; O2SAT 94–99
[2025-08-13] MEDS: METOCLOPRAMIDE HCL 5MG/ml INJ 2ml VIAL IV ONE (04:45)
[2025-08-13 06:23] LABS: INR 1.19 (0.9-1.15); Partial Thromboplastin Time 26.4 SEC (24.5-34.5); Prothrombin Time 12.4 sec (9.3-11.8)
[2025-08-13 06:30] LABS: Hematocrit 42.2 % (41.0-53.0); Hemoglobin 14.8 g/dL (13.5-17.5); Mean Corpuscular Hemoglobin 28.6 pg (28.0-32.0); Mean Corpuscular Volume 81.8 fL (80.0-100.0); Nucleated Red Blood Cells % 0.2 %
[2025-08-13 06:31] LABS: Alanine Aminotransferase 12 U/L (7-40); Albumin 3.9 g/dL (3.2-4.8); Alkaline Phosphatase 61 U/L (46-116); Anion Gap 14 (5-15); BUN/Creatinine Ratio 9.8 (10.0-20.0); Bilirubin, Total 1.0 mg/dL (0.2-1.0); Blood Urea Nitrogen 11 mg/dL (9-23); Calcium 9.3 mg/dL (8.7-10.4); Carbon Dioxide 25 mmol/L (20-31); Potassium 4.1 mmol/L (3.5-5.1); Total Protein 6.5 g/dL (5.7-8.2)
[2025-08-13 06:32] LABS: Chloride 107 mmol/L (98-107); Glucose 110 mg/dL (74-106); Sodium 146 mmol/L (136-145)
--- NOTE | 2025-08-13 08:27 | DVH ---
INDICATION: upcoming procedure TECHNIQUE: Frontal view of the chest. COMPARISON: None FINDINGS: . The heart and mediastinal contours are grossly unremarkable. There is no evidence of pleural disease. The lungs are clear. The bony structures of the chest are intact without fracture. IMPRESSION: 1. No evidence of acute disease.
[2025-08-13] MEDS: PANTOPRAZOLE 40 MG/10 ML VIAL INJ IV SCH ×2 (08:46→21:57)
--- NOTE | 2025-08-13 09:49 | DVHPN2 ---
Progress Note - Dictate Date Seen: Aug 13, 2025 Medical Necessity Reason Pt with a Central, PICC or Fol: No vital signs Vital Sign Date Time Temp Pulse Resp B/P (MAP) Pulse Ox O2 Delivery O2 Flow Rate FiO2 08/13/25 08:10 98.5 52 18 118/68 (85) 99 98.5 08/12/25 20:00 Room Air* 0 21 Total Intake and Output 08/12/25 08/12/25 08/13/25 15:00 23:00 07:00 Intake Total 0 ml Balance 0 ml medications Current Medications Medications Dose Ordered Sig/Daphne Route Start Time Stop Time Status Last Admin Dose Admin Acetaminophen/ Hydrocodone Bitart 1 tab Q4HP PRN PO 08/12/25 14:15 08/12/25 21:21 1 TAB Acetaminophen 650 mg Q6HP PRN PO 08/12/25 14:15 Morphine Sulfate 2 mg Q4HPRN PRN IV 08/12/25 14:15 Ondansetron HCl 4 mg Q4HP PRN IV 08/12/25 14:15 08/13/25 01:24 4 MG Pantoprazole Sodium 40 mg DAILY IV 08/13/25 10:00 08/13/25 08:46 40 MG Sucralfate 1 gm BID@0600,2200 PO 08/12/25 22:00 08/13/25 05:18 1 GM objective General Appearance: alert, no distress HEENT: EOMI, PERRLA, normal external inspect of ears, no icterus, no nasal drainage Neck: no carotid bruit, no jugular venous distention (JVD), no lymphadenopathy Chest: normal thorax Respiratory: clear to auscultation, normal air movement Cardiovascular: regular rate and rhythm, no diastolic murmur, no jugular venous distention (JVD), no rub, no systolic murmur Abdominal: soft, no hepatomegaly, no mass, no splenomegaly, no tenderness Genitourinary: grossly normal external Musculoskeletal: no joint tenderness, no swelling Extremities: normal pulses, no calf tenderness, no clubbing, no cyanosis, no edema Skin: no bruising, no jaundice, no rash Neurological: alert, No focal deficit laboratory and microbiology Laboratory Tests 08/13/25 05:40 Test 08/13/25 05:40 Range/Units Serum Glucose 110 H 74-106 mg/dL Problem List 1. Intractable back pain Monitor, MRI spine, bone scan, PRN pain meds 2. Closed T12 fracture Monitor, MRI spine, orthopedic spinal consult 3. Intractable nausea and vomiting Monitor, GI consult, antiemetics, IV fluids 4. Cannabis use Monitor, educate Assessment/Plan Subjective Patient is awake and alert. Objective I spoke with patient and patient's at bedside. Patient was admitted for abdominal pain, back pain, and nausea and vomiting. CT imaging shows possible lytic lesions suspicious of malignancy to his L-spine. MRI was done, however not with contrast. I did speak with Dr. Ferreira yesterday in regards to plan of care. Patient states he did not have any fall or injuries. Patient has intractable nausea and vomiting. states patient had a recent colonoscopy with no issues. Patient does spoke cannabis. Nausea and vomiting could ave some component of cannabis hyperemesis syndrome. Plan Repeat MRI with contrast of L-spine to reevaluate lumbar mass. I did review the new MRI with contrast and fracture could not be excluded. Patient is NPO. Pending EGD today. Start IV fluids. Continue antiemetics. Add compazine. Pending orthopedic spinal consult. Obtain bone scan of the body. Plan discussed with: Patient, Other SILVIANO SKY [employer] Aug 13, 2025 09:49
[2025-08-13] MEDS ORDERED: GADOTERATE MEG 10 MMOL/20ml INJ (0.5MMOL/ml) IV ONE (10:13)
--- NOTE | 2025-08-13 11:38 | DVH ---
PROCEDURE: MRI LUMBAR SPINE WO W CONTRST Indication: r/o mets COMPARISON: CT abdomen pelvis and MRI lumbar spine from 08/12/2025. TECHNIQUE: Sagittal and axial T1 postcontrast images of the lumbar spine FINDINGS: Redemonstration of posterior fusion hardware at L2 through S1. Results in susceptibility artifact. No significant marrow enhancement seen at T12. There is mild marrow enhancement at the L1 superior endplate region in the corresponding region of increased STIR signal/ edema on the prior MRI. No significant loss of the L1 vertebral body height. No abnormal enhancement in the region of the conus. IMPRESSION: Mild marrow enhancement of the L1 superior endplate in the region of corresponding increased STIR signal on prior MRI could represent fracture with Other Differential considerations including metastatic lesion. Correlate with symptoms. Recommend continued imaging surveillance. No definitive marrow enhancement at T12. Consider obtaining a PET scan/ bone scan to further evaluate
[2025-08-13] MEDS: PROCHLORPERAZINE EDISYLATE 5 MG/ML 2ML VIAL IV PRN (13:35)
[2025-08-13] MEDS ORDERED: PROPOFOL 10 MG/ML 20 ML IV ONE (14:20)
[2025-08-13] MEDS ORDERED: LIDOCAINE 2% (LOCAL ANESTH.) PF 5ml SDV ONE (14:20)
--- NOTE | 2025-08-13 14:35 | DVHOP2 ---
Operative Report DATE OF OPERATION: 08/13/25 PROCEDURE: Upper Endoscopy with biopsy. PREOPERATIVE INDICATION: The patient is a 55 -year-old male undergoing endoscopy for epigastric pain and dyspepsia POSTOPERATIVE DIAGNOSES: 1. Patient had a 1.5 cm pre-pyloric antral gastric ulcer with a red dot but no visible vessel or active bleeding 2. Moderate gastroduodenitis but no fresh or old blood in the upper GI tract at this time 3. 1 cm sliding-type hiatal hernia otherwise normal examination up to the 2nd and 3rd part of the duodenum PROCEDURE PERFORMED BY: Brian Mcdaniels GI NURSE: Giulia SCOPE: Olympus videoendoscope. ASA CLASS: 3 PREOPERATIVE MEDICATIONS: Mac sedation, Tera Oliveros PROCEDURE IN DETAIL: After obtaining an informed consent, the patient was placed on left lateral decubitus position. The patient was then sedated with the above medications. A bite block was placed between his teeth. The endoscope was then passed through the oropharynx, into the esophagus, and through the stomach and pylorus up to the second and third part of the duodenum. The endoscope was then withdrawn. The 2nd and 3rd part of the duodenal were normal and the duodenal bulb and postbulbar area showed moderate duodenitis with hyperemia erythema mucosal edema The pre-pyloric area antrum and body showed moderate gastritis with gastric erosions and tiny ulcers. There was a larger 1.5 cm pre-pyloric antral gastric ulcer This was Tirso classification C with a red dot but no visible vessel or active bleeding. Gastric biopsies and duodenal biopsies were obtained. The endoscope was then withdrawn into the distal esophagus where the patient had a 1 cm sliding-type hiatal hernia with no significant erosive esophagitis The patient tolerated the procedure well without difficulty. COMPLICATIONS : None SPECIMENS: Duodenal biopsies Gastric biopsies DISPOSITION: Transfer back to the floor Stable PLAN: 1. Await for biopsy result 2. Will place pt on Protonix 40 mg bid IV 3. Carafate suspension 1 g p.o. 4 times a day 4. Start with full liquid diet advance as tolerated 5. DC aspirin NSAIDs smoking alcohol BRIAN MCDANIELS MD Aug 13, 2025 14:35
[2025-08-13] MEDS: SUCRALFATE 1 GM/10 ML ORAL SUSP PO SCH (16:12)
[2025-08-13] MEDS: D5W/SOD CHL 0.45% 1,000 ML IV SCH (16:12)
[2025-08-13] MEDS: MORPHINE SULFATE 4 MG/ML SYR/VIAL IV PRN (17:38)
[2025-08-14] VITALS (7 sets, daily range): BP systolic 109–135; BP diastolic 61–81; PULSE 52–87; RESP 16–18; TEMP 98–98.9; O2SAT 96–100
[2025-08-14 11:00] LABS: Hematocrit 44.8 % (41.0-53.0); Hemoglobin 15.4 g/dL (13.5-17.5); Mean Corpuscular Hemoglobin 28.8 pg (28.0-32.0); Mean Corpuscular Volume 83.8 fL (80.0-100.0); Nucleated Red Blood Cells % 0.1 %
--- NOTE | 2025-08-14 11:48 | DVHPN2 ---
Progress Note - Dictate Date Seen: Aug 14, 2025 Medical Necessity Reason Pt with a Central, PICC or Fol: No vital signs Vital Sign Date Time Temp Pulse Resp B/P (MAP) Pulse Ox O2 Delivery O2 Flow Rate FiO2 08/14/25 08:34 98.2 58 16 112/72 (85) 100 98.2 08/14/25 08:00 Room Air* 0 21 Total Intake and Output 08/13/25 08/13/25 08/14/25 15:00 23:00 07:00 Intake Total 100 ml 200 ml 200 ml Output Total 650 ml Balance 100 ml 200 ml -450 ml medications Current Medications Medications Dose Ordered Sig/Daphne Route Start Time Stop Time Status Last Admin Dose Admin Acetaminophen/ Hydrocodone Bitart 1 tab Q4HP PRN PO 08/12/25 14:15 08/12/25 21:21 1 TAB Acetaminophen 650 mg Q6HP PRN PO 08/12/25 14:15 Ondansetron HCl 4 mg Q4HP PRN IV 08/12/25 14:15 08/14/25 04:15 4 MG Prochlorperazine Edisylate 10 mg Q4HPRN PRN IV 08/13/25 10:00 08/14/25 08:19 10 MG Dextrose/Sodium Chloride 1,000 ml @ 125 mls/hr Q8H IV 08/13/25 13:45 08/14/25 06:04 125 MLS/HR Pantoprazole Sodium 40 mg BID IV 08/13/25 22:00 08/14/25 10:18 40 MG Sucralfate 1 gm ACHS PO 08/13/25 17:00 08/14/25 10:18 1 GM Morphine Sulfate 2 mg Q4HPRN PRN IV 08/13/25 17:30 08/13/25 17:38 2 MG objective General Appearance: alert, no distress HEENT: EOMI, PERRLA, normal external inspect of ears, no icterus, no nasal drainage Neck: no carotid bruit, no jugular venous distention (JVD), no lymphadenopathy Chest: normal thorax Respiratory: clear to auscultation, normal air movement Cardiovascular: regular rate and rhythm, no diastolic murmur, no jugular venous distention (JVD), no rub, no systolic murmur Abdominal: soft, no hepatomegaly, no mass, no splenomegaly, no tenderness Genitourinary: grossly normal external Musculoskeletal: no joint tenderness, no swelling Extremities: normal pulses, no calf tenderness, no clubbing, no cyanosis, no edema Skin: no bruising, no jaundice, no rash Neurological: alert, No focal deficit laboratory and microbiology Laboratory Tests 08/14/25 10:17 08/13/25 05:40 Test 08/13/25 05:40 Range/Units Serum Glucose 110 H 74-106 mg/dL Problem List 1. Intractable back pain Monitor, MRI spine, bone scan, PRN pain meds 2. Closed T12 fracture Monitor, MRI spine, orthopedic spinal consult 3. Intractable nausea and vomiting Monitor, GI consult, antiemetics, IV fluids 4. Cannabis use Monitor, educate Assessment/Plan Subjective Patient is awake and alert. Patient is still having some nausea. Objective Patient was admitted for intractable back pain and intractable nausea and vomiting. Patient was seen by GI. He is post EGD, he was found to have a prepyloric gastric ulcer. Biopsy was taken. Patient was also found to have moderate gastroduodenalitis. Patient was started on Carafate and Protonix. Patient may also possibly have cannabis hyperemesis syndrome. Patient has severe back pain. They did find sclerotic lesions concerning for fracture or metastasis. MRI with contrast was obtained and orthopedic spinal surgeon Dr. Ferreira was consulted. Bone scan is pending. Plan Continue current treatment. Pending evaluation for orthopedic spinal doctor. Continue Protonix and Carafate. Continue antiemetics as needed. Plan discussed with: Patient, Other SILVIANO SKY NP Aug 14, 2025 11:48
--- NOTE | 2025-08-14 11:50 | DVHPN2 ---
Progress Note Date Seen: Aug 14, 2025 Resident Creating Document: VALENTINE SANFORDYUSUF RESIDENT Medical Necessity Reason Pt with a Central, PICC or Fol: No Subjective Review of Systems Status post EGD yesterday Denies any vomiting but still reports mild nausea No abdominal pain Tolerating full liquid diet H&H stable Objective vital signs Vital Sign Date Time Temp Pulse Resp B/P (MAP) Pulse Ox O2 Delivery O2 Flow Rate FiO2 08/14/25 08:34 98.2 58 16 112/72 (85) 100 98.2 08/14/25 08:00 Room Air* 0 21 Total Intake and Output 08/13/25 08/13/25 08/14/25 15:00 23:00 07:00 Intake Total 100 ml 200 ml 200 ml Output Total 650 ml Balance 100 ml 200 ml -450 ml medications Current Medications Medications Dose Ordered Sig/Daphne Route Start Time Stop Time Status Last Admin Dose Admin Acetaminophen/ Hydrocodone Bitart 1 tab Q4HP PRN PO 08/12/25 14:15 08/12/25 21:21 1 TAB Acetaminophen 650 mg Q6HP PRN PO 08/12/25 14:15 Ondansetron HCl 4 mg Q4HP PRN IV 08/12/25 14:15 08/14/25 04:15 4 MG Prochlorperazine Edisylate 10 mg Q4HPRN PRN IV 08/13/25 10:00 08/14/25 08:19 10 MG Dextrose/Sodium Chloride 1,000 ml @ 125 mls/hr Q8H IV 08/13/25 13:45 08/14/25 06:04 125 MLS/HR Pantoprazole Sodium 40 mg BID IV 08/13/25 22:00 08/14/25 10:18 40 MG Sucralfate 1 gm ACHS PO 08/13/25 17:00 08/14/25 10:18 1 GM Morphine Sulfate 2 mg Q4HPRN PRN IV 08/13/25 17:30 08/13/25 17:38 2 MG Examination Gen - no pallor, no scleral icterus Skin - Patients skin is warm and dry. HEENT - normocephalic, atraumatic, dry mucous membranes. Neck - supple, no lymphadenopathy Pulmonary - B/L decreased breath sounds cardiovascular - regular S1,S2 heard GI - soft abdomen with mild tenderness to palpation in the upper abdomen. Bowel sounds normoactive. Neurological - Patient is alert and oriented x4. laboratory and microbiology Laboratory Tests 08/14/25 10:17 08/13/25 05:40 Test 08/13/25 05:40 Range/Units Serum Glucose 110 H 74-106 mg/dL Problem List/Assessment/Plan Problem List/Assessment/Plan Acute abdominal pain Acute intractable nausea vomiting Pre-pyloric antral gastric ulcer Gastroduodenitis Small hiatal hernia Plan - continue on Protonix 40 mg IV b.i.d. and Carafate p.o. q.i.d. - full liquid diet, advance as tolerated - Avoid NSAIDs Plan discussed with Dr. Mcdaniels Plan discussed with: Patient, Other (RN) YOLI SANFORD RESIDENT Aug 14, 2025 11:50
[2025-08-14] MEDS: OXYCODONE W/ ACETAMINOPHEN 5/325MG TABLET PO PRN (12:39)
[2025-08-14] MEDS: BACLOFEN 10 MG TAB PO SCH (14:29)
--- NOTE | 2025-08-14 15:31 | DVH ---
Procedure: NM BONE WHOLE BODY Exam Date: 08/14/2025 01:46 PM Reason for study/Clinical History: r/o neoplastic process Comparison Study: None Prior correlative imaging: MRI dated 08/13/2025 Nuclear Medicine Whole Body Bone Scan Technique: Following the intravenous administration of 24.1 millicuries of technetium 99m labeled MDP, whole body images in the anterior and posterior projections were obtained 3 hours following the administration of radiopharmaceutical. Findings: There is mild symmetric multifocal activity overlying both shoulders consistent with mild degenerative change. The expected mild activity is noted overlying both kidneys and the bladder without evidence of obstruction. Impression: There is no evidence of focal increased uptake consistent with bony metastatic disease. Mild multifocal activity consistent with degenerative changes as described above.
[2025-08-15 05:00] VITALS: BP 114/70; PULSE 59; RESP 18; TEMP 97.6; O2SAT 96
[2025-08-15 07:30] VITALS: PULSE 59; RESP 18; O2SAT 96
[2025-08-15] MEDS: LIDOCAINE 5% TOPICAL PATCH TOP SCH (08:37)
--- NOTE | 2025-08-15 12:34 | DVHPN2 ---
Progress Note - Dictate Medical Necessity Reason Pt with a Central, PICC or Fol: No vital signs Vital Sign Date Time Temp Pulse Resp B/P (MAP) Pulse Ox O2 Delivery O2 Flow Rate FiO2 08/15/25 07:30 59 18 96 Room Air* 0 21 08/15/25 05:00 97.6 114/70 (85) 97.6 Total Intake and Output 08/14/25 08/14/25 08/15/25 15:00 23:00 07:00 Intake Total 800 ml 200 ml Output Total 450 ml Balance 800 ml -250 ml medications Current Medications Medications Dose Ordered Sig/Daphne Route Start Time Stop Time Status Last Admin Dose Admin Acetaminophen 650 mg Q6HP PRN PO 08/12/25 14:15 Ondansetron HCl 4 mg Q4HP PRN IV 08/12/25 14:15 08/14/25 04:15 4 MG Prochlorperazine Edisylate 10 mg Q4HPRN PRN IV 08/13/25 10:00 08/14/25 17:14 10 MG Dextrose/Sodium Chloride 1,000 ml @ 125 mls/hr Q8H IV 08/13/25 13:45 08/14/25 06:04 125 MLS/HR Pantoprazole Sodium 40 mg BID IV 08/13/25 22:00 08/15/25 08:36 40 MG Sucralfate 1 gm ACHS PO 08/13/25 17:00 08/15/25 06:57 1 GM Morphine Sulfate 2 mg Q4HPRN PRN IV 08/13/25 17:30 08/13/25 17:38 2 MG Oxycodone/ Acetaminophen 2 tab Q4HP PRN PO 08/14/25 12:00 08/15/25 08:30 2 TAB Lidocaine 1 patch DAILY TOP 08/15/25 10:00 08/15/25 08:37 1 PATCH Baclofen 10 mg Q8HR PO 08/14/25 14:00 08/15/25 06:57 10 MG objective General Appearance: alert, no distress HEENT: EOMI, PERRLA, normal external inspect of ears, no icterus, no nasal drainage Neck: no carotid bruit, no jugular venous distention (JVD), no lymphadenopathy Chest: normal thorax Respiratory: clear to auscultation, normal air movement Cardiovascular: regular rate and rhythm, no diastolic murmur, no jugular venous distention (JVD), no rub, no systolic murmur Abdominal: soft, no hepatomegaly, no mass, no splenomegaly, no tenderness Genitourinary: grossly normal external Musculoskeletal: no joint tenderness, no swelling Extremities: normal pulses, no calf tenderness, no clubbing, no cyanosis, no edema Skin: no bruising, no jaundice, no rash Neurological: alert, No focal deficit laboratory and microbiology Laboratory Tests 08/14/25 10:17 08/13/25 05:40 Test 08/13/25 05:40 Range/Units Serum Glucose 110 H 74-106 mg/dL Problem List 1. Intractable back pain Monitor, MRI spine, bone scan, PRN pain meds 2. Closed T12 fracture Monitor, MRI spine, orthopedic spinal consult 3. Intractable nausea and vomiting Monitor, GI consult, antiemetics, IV fluids 4. Cannabis use Monitor, educate Assessment/Plan Subjective Patient is awake and alert. Patient is still having some nausea. Objective Patient was admitted for intractable back pain and intractable nausea and vomiting. Patient was seen by GI. He is post EGD, he was found to have a prepyloric gastric ulcer. Biopsy was taken. Patient was also found to have moderate gastroduodenalitis. Patient was started on Carafate and Protonix. Patient may also possibly have cannabis hyperemesis syndrome. Patient has severe back pain. They did find sclerotic lesions concerning for fracture or metastasis. MRI with contrast was obtained and orthopedic spinal surgeon Dr. Ferreira was consulted. Bone scan is pending. Plan Continue current treatment. Pending evaluation for orthopedic spinal doctor. Continue Protonix and Carafate. Continue antiemetics as needed. SILVIANO SKY NP Aug 15, 2025 12:34
--- NOTE | 2025-08-15 12:44 | DVHPN2 ---
Progress Note - Dictate Date Seen: Aug 15, 2025 Medical Necessity Reason Pt with a Central, PICC or Fol: No Subjective No new complaints Patient tolerating diet Hemoglobin stable at 15 Bone scan was negative vital signs Vital Sign Date Time Temp Pulse Resp B/P (MAP) Pulse Ox O2 Delivery O2 Flow Rate FiO2 08/15/25 07:30 59 18 96 Room Air* 0 21 08/15/25 05:00 97.6 114/70 (85) 97.6 Total Intake and Output 08/14/25 08/14/25 08/15/25 15:00 23:00 07:00 Intake Total 800 ml 200 ml Output Total 450 ml Balance 800 ml -250 ml medications Current Medications Medications Dose Ordered Sig/Daphne Route Start Time Stop Time Status Last Admin Dose Admin Acetaminophen 650 mg Q6HP PRN PO 08/12/25 14:15 Ondansetron HCl 4 mg Q4HP PRN IV 08/12/25 14:15 08/14/25 04:15 4 MG Prochlorperazine Edisylate 10 mg Q4HPRN PRN IV 08/13/25 10:00 08/14/25 17:14 10 MG Dextrose/Sodium Chloride 1,000 ml @ 125 mls/hr Q8H IV 08/13/25 13:45 08/14/25 06:04 125 MLS/HR Pantoprazole Sodium 40 mg BID IV 08/13/25 22:00 08/15/25 08:36 40 MG Sucralfate 1 gm ACHS PO 08/13/25 17:00 08/15/25 06:57 1 GM Morphine Sulfate 2 mg Q4HPRN PRN IV 08/13/25 17:30 08/13/25 17:38 2 MG Oxycodone/ Acetaminophen 2 tab Q4HP PRN PO 08/14/25 12:00 08/15/25 08:30 2 TAB Lidocaine 1 patch DAILY TOP 08/15/25 10:00 08/15/25 08:37 1 PATCH Baclofen 10 mg Q8HR PO 08/14/25 14:00 08/15/25 06:57 10 MG objective Gen - no pallor, no scleral icterus Skin - Patients skin is warm and dry. HEENT - normocephalic, atraumatic, dry mucous membranes. Neck - supple, no lymphadenopathy Pulmonary - B/L decreased breath sounds cardiovascular - regular S1,S2 heard GI - soft abdomen with mild tenderness to palpation in the upper abdomen. Bowel sounds normoactive. Neurological - Patient is alert and oriented x 4 laboratory and microbiology Laboratory Tests 08/14/25 10:17 08/13/25 05:40 Test 08/13/25 05:40 Range/Units Serum Glucose 110 H 74-106 mg/dL Problems(with codes): (1) Epigastric pain (2) Gastric ulcer (3) Intractable back pain Prognosis Plan Patient is stable for discharge from GI point of view Protonix 40 mg p.o. twice a day Carafate 1 g p.o. twice a day Patient stated he had some surgery on his back in the past and the sclerotic lesions are likely scar tissue from that surgery Bone scan is negative I will follow this patient with you as needed and he can follow up in my office as an outpatient Plan discussed with: Patient BRIAN OSEI MD Aug 15, 2025 12:43
[2025-08-15 13:00] VITALS: BP 134/82; PULSE 55; RESP 20; TEMP 97.5; O2SAT 96
[2025-08-15 17:25] VITALS: BP 140/74; PULSE 64; RESP 17; TEMP 98.4; O2SAT 98
[2025-08-15] MEDS ORDERED: PANT40TA2 PO (17:55)
[2025-08-15] MEDS ORDERED: SUCR1TAB31 OR (17:55)
--- NOTE | 2025-08-15 17:57 | DVHDS2 ---
Discharge Summary Date of Admission Aug 12, 2025 at 14:11 Date of Discharge: Aug 15, 2025 Labs/Diagnostic Data: Laboratory Results Test 08/14/25 10:17 08/13/25 05:40 08/12/25 18:45 08/12/25 10:35 White Blood Count 13.7 10^3/uL (4.4-10.8) Red Blood Count 5.35 10^6/uL (4.5-5.90) Hemoglobin 15.4 g/dL (13.5-17.5) Hematocrit 44.8 % (41.0-53.0) Mean Corpuscular Volume 83.8 fL (80.0-100.0) Mean Corpuscular Hemoglobin 28.8 pg (28.0-32.0) Mean Corpuscular Hemoglobin Concent 34.3 g/dL (32.0-36.0) Red Cell Distribution Width 14.6 % (11.8-14.3) Platelet Count 184 10^3/uL (140-450) Mean Platelet Volume 9.4 fL (6.9-10.8) Neutrophils (%) (Auto) 66.9 % (37.0-80.0) Lymphocytes (%) (Auto) 19.9 % (10.0-50.0) Monocytes (%) (Auto) 12.4 % (0.0-12.0) Eosinophils (%) (Auto) 0.1 % (0.0-7.0) Basophils (%) (Auto) 0.7 % (0.0-2.0) Neutrophils # (Auto) 9.2 10 ^3/uL (1.6-8.6) Lymphocytes # (Auto) 2.7 10 ^3/uL (0.4-5.4) Monocytes # (Auto) 1.7 10 ^3/uL (0-1.3) Eosinophils # (Auto) 0 10 ^3/uL (0-0.8) Basophils # (Auto) 0.1 10 ^3/uL (0-0.2) Nucleated Red Blood Cells 0.1 % Prothrombin Time 12.4 sec (9.3-11.8) Prothrombin Time INR 1.19 (0.9-1.15) Activated Partial Thromboplast Time 26.4 SEC (24.5-34.5) Sodium Level 146 mmol/L (136-145) Potassium Level 4.1 mmol/L (3.5-5.1) Chloride Level 107 mmol/L (98-107) Carbon Dioxide Level 25 mmol/L (20-31) Anion Gap 14 (5-15) Blood Urea Nitrogen 11 mg/dL (9-23) Creatinine 1.12 mg/dL (0.700-1.30) Glomerular Filtration Rate Calc 77 mL/min (>90) BUN/Creatinine Ratio 9.8 (10.0-20.0) Serum Glucose 110 mg/dL (74-106) Calcium Level 9.3 mg/dL (8.7-10.4) Total Bilirubin 1.0 mg/dL (0.2-1.0) Aspartate Amino Transferase (AST) 19 U/L (13-40) Alanine Aminotransferase (ALT) 12 U/L (7-40) Alkaline Phosphatase 61 U/L (46-116) Total Protein 6.5 g/dL (5.7-8.2) Albumin 3.9 g/dL (3.2-4.8) Urine Color Yellow (Yellow) Urine Clarity Clear (Clear) Urine pH 6.5 (5.0-9.0) Urine Specific [place] > 1.050 (1.001-1.035) Urine Protein 1+ (Negative) Urine Ketones 2+ (Negative) Urine Blood Negative /uL (Negative) Urine Nitrite Negative (Negative) Urine Bilirubin Negative (Negative) Urine Urobilinogen Normal mg/dL (Negative) Urine Leukocyte Esterase Negative /uL (Negative) Urine RBC 3 /hpf (0 - 3) Urine Microscopic WBC < 1 /HPF (0-3) Urine Squamous Epithelial Cells None seen /hpf (<5) Urine Bacteria None seen /hpf (None Seen) Urine Mucus Few (None Seen) Urine Glucose Normal mg/dL (Normal) Platelet Estimate Adequate Giant Platelets Moderate Troponin I High Sensitivity 4 ng/L (</=54) Lipase 37 U/L (12-53) Other Laboratory Tests 08/14/25 10:17 08/13/25 05:40 Brief Hx & Hospital Course: 55 y/o male patient presents with c/o abdominal pain, nausea, vomiting, and back pain. Patient states he has not been able to tolerate any food or liquids. Patient was admitted on 08/12/2025 for intractable back pain and intractable nausea and vomiting. Nausea and vomiting could also be attributed to cannabis hyperemesis syndrome. Patient is a current cannabis user. Patient was seen by gastroenterology who started on IV fluids and Protonix IV. Patient is status post EGD. He was found to have a gastric ulcer which was nonbleeding and gastroduodenitis. Patient was started on Carafate and Protonix. Patient also had acute intractable back pain. MRI without contrast was done. Neoplastic process could not be ruled out. MRI of the lumbar spine with contrast was then done and fracture of L-spine versus malignant neoplasm also could not be ruled out. Orthopedic spinal surgeon Dr. Ferreira was consulted for evaluation. Bone scan was done. Bone scan did not show any malignant process. Patient was updated on results. Per Dr. Ferreira no malignancy or fracture was seen. Patient has arthritis. Patient's diet was advanced from clear liquid to full liquid to a regular diet and he tolerated it well. Patient was instructed to follow-up with his PCP in 1 week and to follow-up with PCP or GI for biopsy results. Medications were sent to his pharmacy. Patient will continue pain meds and muscle relaxants that were previously prescribed to him. The patient received proper medical treatment and medications. Vital signs, Imaging and Laboratory Work was monitored daily. All consults recommendations were followed as provided. There were no complaints or new complaints upon discharge, all questions and concerns were answered. Patient was advised to return to the ER or call 911 if any headaches, dizziness, shortness of breath, chest pain, bleeding, fevers, or worsening of medical condition. Patient/Family was counseled about treatment plan, medications, possible side effects, patient verbalized understanding. All questions were answered to the best of my ability. The patient symptoms improved and they are okay to be DC. 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 Intractable back pain Intractable nausea and vomiting Cannabis use Discharge Disposition: Home Discharge Instruct/Medications Diet: Cardiac 2g Na,low cholest Activity: No Restrictions, As Tolerated Follow Up/Referral: PCP 1 week f/u gastroenterology Medications: Continue protonix and carafate per GI Scheduled Docusate Sodium (Colace), 1 CAP PO BID, (Reported) Pantoprazole Sodium Sesquihydr (Protonix), 40 MG PO BID Sucralfate (Carafate), 1 GM OR ACHS Scheduled PRN Hydrocodone-Acetaminophen (Hydrocodone Bitartrate/AC 10-325 mg), 1 TAB PO for PAIN SCALE 7 THRU 10, (Reported) Miscellaneous Medications Cyclobenzaprine HCl (Cyclobenzaprine Hydrochlo), 10 MG PO, (Reported) Discharge Statement: "Patient was advised to return to the ER or call 911 if any headaches, dizziness, shortness of breath, chest pain, abdominal pain, bleeding, fevers, or worsening of medical condition. Patient was counseled about treatment plan, medications, possible side effects, patientverbalized understanding. All questions were answered to the best of my ability. This discharge took greater then 30 minutes in planning, reviewing documentation, counseling the patient, and discussing with other team members." ASSESSMENT ASSESSMENT Assessment Gatric ulcer gastroduodenitis s/p biopsy- f/u PCP or GI for biopsy results arthritis and DDD to lower back SILVIANO SKY NP Aug 15, 2025 17:57
== END 2025-08-15 20:30 | disposition home or self-care (01) | DRG 241 ==
LOC: EDBD 10:14 → ER 10:14 → OVERFLOW 14:11 → CENTRAL 08-13 16:03
PROVIDERS: ADMIT Nurse Practitioner; ATTEND Nurse Practitioner
PROC: 0DB68ZX Excision of Stomach, Via Natural or Artificial Opening Endoscopic, Diagnostic (ICD-10-PCS; 2025-08-13)
PROC: 0DB98ZX Excision of Duodenum, Via Natural or Artificial Opening Endoscopic, Diagnostic (ICD-10-PCS; principal; 2025-08-13 14:21)
DX: K25.9 Gastric ulcer, unspecified as acute or chronic, without hemorrhage or perforation (principal); K29.90 Gastroduodenitis, unspecified, without bleeding; E78.5 Hyperlipidemia, unspecified; K44.9 Diaphragmatic hernia without obstruction or gangrene; Z88.0 Allergy status to penicillin
CPT/HCPCS: 36415; 43239; 71045; 72148; 72158; 74177; 78306; 80053; 81001; 83690; 84484; 85025; 85610; 85730; 86850; 86900; 86901; 96361; 96374; 96375; 96376; 99291; G0378; J2003; J2405; J2470; J2704